=== PATIENT | female | born 1960 | race Caucasian/White ===

== ENCOUNTER 2024-02-24 13:45 | Outpatient (CLI) | payer BC | END 2024-02-24 13:46 | disposition home or self-care (01) | LOC: CSHULT 13:45 | PROVIDERS: ATTEND Nurse Practitioner Family | DX: I34.1 Nonrheumatic mitral (valve) prolapse (principal); I34.0 Nonrheumatic mitral (valve) insufficiency; I51.7 Cardiomegaly; Z95.2 Presence of prosthetic heart valve; I51.9 Heart disease, unspecified | CPT/HCPCS: 71046; 93306 ==